=== PATIENT | female | born 1985 | race Caucasian/White ===

== ENCOUNTER → 2019-06-29 | Outpatient (CLI) | payer OTHER ==
--- NOTE | 2019-06-29 19:16 | REP ---
PA and lateral chest: There are no comparisons. There is an infiltrate in the lingular segment of the left upper lobe. There is no pleural effusion. The remainder of the lung scott are clear. Cardiac size is normal. The michelle, mediastinum, skeletal structures are unremarkable. Impression: Infiltrate in the lingular segment of the left upper lobe. Electronically Signed by Peter Romano MD 06/29/2019 07:07 P
== END ==
LOC: M LRY 18:48
PROVIDERS: ATTEND Physician Assistant
DX: R91.8 Other nonspecific abnormal finding of lung field (principal)